=== PATIENT | female | born 1965 | race Caucasian/White ===

== ENCOUNTER 2022-03-16 06:11 | Emergency (ER) | payer OTHER, MEDICAID, SELFPAY ==
[2022-03-16] VITALS (27 sets, daily range): BP systolic 86–119; BP diastolic 50–77; PULSE 72–92; RESP 22; TEMP 36.8; O2SAT 92–100
--- NOTE | 2022-03-16 06:10 | DI.RAD.S_ITS ---
PROCEDURE: XR TIBIA FIBULA LT 2V INDICATIONS: ankle deformity after fall TECHNIQUE: 2 views of the tibia and fibula were acquired. COMPARISON: [facility], CR, XR ANKLE LT MIN 3V, 03/16/2022, 6:18. is again seen FINDINGS: Bones: Slightly displaced oblique fracture through distal fibular shaft is again seen. Displaced medial malleolus fracture is also noted. No fracture or dislocation is seen in proximal to mid tibia or fibula. Soft tissues: No suspicious soft tissue calcifications or masses. IMPRESSION: Bi malleolar fracture. No proximal to mid tibial or fibular fracture. Dictated by: Hill Rose M.D. on 03/16/2022 at 8:19 Approved by: Hill Rose M.D. on 03/16/2022 at 8:24
--- NOTE | 2022-03-16 06:10 | DI.RAD.S_ITS ---
PROCEDURE: XR ANKLE LT MIN 3V INDICATIONS: ankle deformity TECHNIQUE: 3 views of the ankle were acquired. COMPARISON: None. FINDINGS: Bones: Acute comminuted and slightly displaced oblique fracture involving distal fibular shaft is seen with dorsal and lateral displacement at fracture sites. Acute slightly comminuted fracture through medial malleolus is also seen with distal displacement at fracture site. No other fracture or dislocation. Ankle mortise is congruent. Soft tissues: No tibiotalar joint effusion. Achilles tendon appears normal. IMPRESSION: Acute slightly displaced bi malleolar fracture as above. No significant discrepancies. Dictated by: Hill Rose M.D. on 03/16/2022 at 8:18 Approved by: Hill Rose M.D. on 03/16/2022 at 8:19
--- NOTE | 2022-03-16 06:12 | ED.GENADULT ---
HPI - General Adult <Funmi Alcaraz MD - Last Filed: 03/17/22 02:55> General Chief complaint: Extremity Injury, Lower Stated complaint: GLF /LT ankle pain Time Seen by Provider: 03/16/22 06:14 History of Present Illness HPI narrative: 57-year-old woman with no significant medical history and no significant interaction with the medical community for approximately 20 years presents after a fall about 10:00 a.m. last night. She states that she took a cab home and stumbled going up her steep driveway. Significant pain on the left side but she was able to get herself into bed keep her foot propped up and it was not until very early this morning that the pain became significant enough that she called 911 to ask for assistance. She describes no other injuries, no recent fever, cough, chills, abdominal pain, vomiting, chest pain, headaches, palpitations. Related Data Previous Rx's Medication Instructions Recorded morphine 15 mg immediate release 15 mg PO Q4H #14 tabs 03/16/22 tablet ondansetron 4 mg disintegrating 4 mg PO Q6H #14 tabs 03/16/22 tablet Allergies Allergy/AdvReac Type Severity Reaction Status Date / Time codeine Allergy Verified 03/16/22 12:42 Sulfa (Sulfonamide Allergy Verified 03/16/22 12:42 Antibiotics) tetracycline Allergy Verified 03/16/22 12:42 Review of Systems <Funmi Alcaraz MD - Last Filed: 03/17/22 02:55> Review of Systems Narrative: Remainder of complete review of systems is otherwise unremarkable except for that included in the HPI. Patient History <Funmi Alcaraz MD - Last Filed: 03/17/22 02:55> Social History Smoking Status: Never smoker Exam <Funmi Alcaraz MD - Last Filed: 03/17/22 02:55> Initial Vital Signs Initial Vital Signs: Vital Signs Pulse Rate 92 H 03/16/22 06:16 Pulse Oximetry 98 03/16/22 06:16 General: Alert, she ring secondary to anxiety and pain, Respiratory: Able to speak in full sentences, no obvious respiratory distress Skin: No obvious rashes, warm and dry Neurologic: Grossly intact no obvious asymmetries or abnormalities Psych: appropriate insight and affect, cooperative Extremity: Significant deformity left distal lower extremity slightly proximal to the ankle. She is able to wiggle her toes. There is increasing swelling and hematoma developing around the deformity. She does not have proximal fibular pain or knee complaints. <Greg Torres MD - Last Filed: 03/16/22 10:50> Initial Vital Signs Initial Vital Signs: Vital Signs Pulse Rate 92 H 03/16/22 06:16 Pulse Oximetry 98 03/16/22 06:16 Course <Funmi Alcaraz MD - Last Filed: 03/17/22 02:55> Orders Ordered: Discontinued Medications Hydromorphone HCl (Hydromorphone 0.5 Mg Inj) 0.5 mg IV Q15MIN PRN PRN Reason: Pain, Last Admin: 03/16/22 12:41 Dose: 0.5 mg Documented By: Admin: 03/16/22 10:12 Dose: 0.5 mg Documented By: Admin: 03/16/22 08:11 Dose: 0.5 mg Documented By: Admin: 03/16/22 06:34 Dose: 0.5 mg Documented By: EB Ketorolac Tromethamine (Ketorolac 30 Mg/Ml Vial) 15 mg IV NOW ONE Stop: 03/16/22 06:11 Last Admin: 03/16/22 06:19 Dose: 15 mg Documented By: EB Metoclopramide HCl (Metoclopramide 10 Mg/2 Ml Inj) 10 mg IV NOW ONE Stop: 03/16/22 10:17 Last Admin: 03/16/22 10:20 Dose: 10 mg Documented By: FABY Ondansetron HCl (Ondansetron 4 Mg/2 Ml Inj) 4 mg IV NOW ONE Stop: 03/16/22 10:04 Last Admin: 03/16/22 10:10 Dose: 4 mg Documented By: FABY Ondansetron HCl (Ondansetron 4 Mg Odt) 4 mg SL NOW ONE Stop: 03/16/22 14:28 Last Admin: 03/16/22 14:30 Dose: 4 mg Documented By: AT Vital Signs Vital signs: Vital Signs - 8 hr 03/16/22 06:30 03/16/22 06:16 03/16/22 06:30 Temperature 98.3 F Pulse Rate 91 H 92 H 84 Respiratory Rate 22 Blood Pressure 119/77 Pulse Oximetry 96 98 98 Oxygen Delivery Method Room Air 03/16/22 07:01 03/16/22 07:30 Temperature Pulse Rate 75 73 Respiratory Rate Blood Pressure Pulse Oximetry 94 94 Oxygen Delivery Method <Greg Torres MD - Last Filed: 03/16/22 10:50> Course Course Narrative: MRI is ordered at the request of Dr. Smith. This is pending. Splint is placed by nursing staff. Post splinting neurovascular status is intact as assessed by myself. She will be given crutches and pain medication prescription and expected outpatient follow-up. Orders Ordered: Discontinued Medications Hydromorphone HCl (Hydromorphone 0.5 Mg Inj) 0.5 mg IV Q15MIN PRN PRN Reason: Pain, Last Admin: 03/16/22 12:41 Dose: 0.5 mg Documented By: Admin: 03/16/22 10:12 Dose: 0.5 mg Documented By: Admin: 03/16/22 08:11 Dose: 0.5 mg Documented By: Admin: 03/16/22 06:34 Dose: 0.5 mg Documented By: EB Ketorolac Tromethamine (Ketorolac 30 Mg/Ml Vial) 15 mg IV NOW ONE Stop: 03/16/22 06:11 Last Admin: 03/16/22 06:19 Dose: 15 mg Documented By: EB Metoclopramide HCl (Metoclopramide 10 Mg/2 Ml Inj) 10 mg IV NOW ONE Stop: 03/16/22 10:17 Last Admin: 03/16/22 10:20 Dose: 10 mg Documented By: FABY Ondansetron HCl (Ondansetron 4 Mg/2 Ml Inj) 4 mg IV NOW ONE Stop: 03/16/22 10:04 Last Admin: 03/16/22 10:10 Dose: 4 mg Documented By: FABY Ondansetron HCl (Ondansetron 4 Mg Odt) 4 mg SL NOW ONE Stop: 03/16/22 14:28 Last Admin: 03/16/22 14:30 Dose: 4 mg Documented By: AT Consultations Consultation #1: Current time 8:24 a.m.. Spoke with Sudheer Smith from Orthopedic surgery who said that he would make arrangements for her to be seen in the clinic in the coming days. He recommended splinting and outpatient follow-up. Given the slightly unusual cortical appearance on x-ray will proceed with MR imaging with and without contrast to more definitively exclude pathologic fracture. Vital Signs Vital signs: Vital Signs - 8 hr 03/16/22 06:30 03/16/22 06:16 03/16/22 06:30 Temperature 98.3 F Pulse Rate 91 H 92 H 84 Respiratory Rate 22 Blood Pressure 119/77 Pulse Oximetry 96 98 98 Oxygen Delivery Method Room Air 03/16/22 07:01 03/16/22 07:30 Temperature Pulse Rate 75 73 Respiratory Rate Blood Pressure Pulse Oximetry 94 94 Oxygen Delivery Method Discharge Plan Departure Patient Disposition: Home Clinical Impression: Bimalleolar ankle fracture Qualifiers: Encounter type: initial encounter Fracture type: closed Laterality: left Qualified Code(s): S82.842A - Displaced bimalleolar fracture of left lower leg, initial encounter for closed fracture Instructions: DI for Fracture Activity Restrictions/Additional Instructions: I am sorry that you broke her leg. Keep the splint on, elevate the leg as much as possible. Elevation means higher than your heart. Ice packs can help with pain as well but do not leave the ice packs on for more than 30 minutes at a time allowing the leg to warm up in between icing events. Pain management will be helped by Tylenol 1000 mg every 6 hours. In addition to this you can take morphine tablets 1 every 4 hours if needed. I will also prescribe ondansetron for nausea as needed. Do not bear weight on the ankle. Use the crutches to get around. The clinic will call you in the next day or 2 to schedule an outpatient follow-up visit in the coming days. If the pain is severe and not manageable with the medications provided, please return to the emergency department for further evaluation Prescriptions: New morphine 15 mg tablet 15 mg PO Q4H Qty: 14 0RF ondansetron 4 mg tablet,disintegrating 4 mg PO Q6H Qty: 14 0RF Visit Report Forms: Patient Portal/API
[2022-03-16] MEDS: KETOROLAC 30 MG/ML VIAL 15 MG IV (06:19)
[2022-03-16] MEDS: HYDROMORPHONE 0.5 MG INJ IV ×4 (06:34→12:41)
--- NOTE | 2022-03-16 08:20 | DI.MRI.S_ITS ---
PROCEDURE: MR ANKLE LT WO/W CON INDICATIONS: pathologic fracture TECHNIQUE: Noncontrast sagittal T1 spin echo and T2 fast spin echo with fat saturation, axial proton density fast spin echo and T2 fast spin echo with fat saturation, axial T1 spin echo with fat saturation, coronal T1 spin echo and T2 fast spin echo with fat saturation through the ankle/hindfoot. Post-contrast axial, coronal, and sagittal T1 spin echo with fat saturation through the ankle/hindfoot. COMPARISON: [facility], CR, XR TIBIA FIBULA LT 2V, 03/16/2022, 6:18. FINDINGS: Image quality: Excellent. Bones and joints: There is a minimally displaced oblique fracture of the distal fibular shaft as seen on radiographs from earlier the same day. Relatively mild surrounding osseous edema is seen. No underlying osseous lesion or abnormal masslike enhancement is seen to suggest pathologic fracture. Mildly displaced transverse fracture of the medial malleolus is seen with minimal adjacent osseous edema. The distal fracture fragment is displaced approximately 3 mm medially. There is associated mild medial subluxation of the talus relative to the distal tibia. A small minimally displaced 8 x 11 x 2 mm comminuted osseous fragment is seen along the posterior fracture line. No posterior malleolus fracture is seen. No osteochondral lesion is seen in the talar dome. Subcutaneous soft tissue edema is seen surrounding the ankle. Medial structures: Mildly increased signal is seen in the region of the deep fibers of the deltoid ligament, consistent with a low-grade sprain. No definite ligament tearing is seen. However, positioning of the ankle in plantar flexion mildly compromises evaluation. The visualized components of the spring ligament appear to be intact. The posterior tibialis, flexor digitorum longus, and flexor hallucis longus tendons are intact. The posterior tibial neurovascular bundle appears normal within the tarsal tunnel, without extrinsic mass effect. Lateral structures: Thickening of the anterior talofibular ligament without surrounding edema is consistent with a remote prior sprain. The calcaneofibular ligament and the posterior talofibular ligament appear to be intact. There is probable complete tearing of the anterior and posterior tibiofibular ligaments as well as edema and irregularity in the region of the interosseous ligament. The peroneus longus and brevis tendons demonstrate normal location and morphology. There is very mild partial effacement of the fat in the sinus tarsi. Anterior structures: The tibialis anterior, extensor hallucis longus, and extensor digitorum longus tendons appear intact. The dorsal talonavicular ligament appears intact. Posterior and plantar structures: Achilles tendon is intact. Medial and lateral bands of the plantar fascia are of normal thickness. No abductor digiti quinti muscle atrophy to suggest Guthrie neuropathy. IMPRESSION: 1. Mildly displaced bimalleolar fractures with associated mild lateral tibiotalar subluxation. No osseous mass or abnormal masslike enhancement is seen to suggest a pathologic fracture. 2. Complete tearing of the anterior and posterior tibiofibular ligaments and mild irregularity of the interosseous ligament, consistent with syndesmotic injury. 3. Low-grade sprain of the anterior talofibular ligament is of uncertain age and may be chronic. 4. Grade 1 sprain of the deltoid ligament. Dictated by: Asif Fragoso M.D. on 03/16/2022 at 14:18 Approved by: Asif Fragoso M.D. on 03/16/2022 at 14:32
[2022-03-16] MEDS: ONDANSETRON 4 MG/2 ML INJ (08:24)
[2022-03-16] MEDS: ONDANSETRON 4 MG/2 ML INJ IV (10:10)
[2022-03-16] MEDS: METOCLOPRAMIDE 10 MG/2 ML INJ IV (10:20)
[2022-03-16] MEDS: ONDANSETRON 4 MG ODT SL (14:30)
== END 2022-03-16 16:37 | disposition home or self-care (01) ==
PROVIDERS: Emergency Provider Family Medicine Addiction Medicine
DX: S82.842A Displaced bimalleolar fracture of left lower leg, initial encounter for closed fracture (principal); W19.XXXA Unspecified fall, initial encounter
CPT/HCPCS: 73590; 73610; 73723; 96374; 96375; 99284; 99285; J1170; J1885; J2405; J2765

== ENCOUNTER 2022-03-19 09:55 | Day surgery (SDC) | payer OTHER, MEDICAID, SELFPAY ==
[2022-03-19] VITALS (8 sets, daily range): BP systolic 110–135; BP diastolic 70–84; PULSE 73–89; RESP 10–18; TEMP 36.6–37.4; O2SAT 92–99; BMI 29.9
--- NOTE | 2022-03-19 | DI.RAD.S_ITS ---
PROCEDURE: XR ANKLE LT 2V INDICATIONS: LT ANKLE SURGERY TECHNIQUE: 3 views of the ankle were acquired. COMPARISON: [facility], CR, XR ANKLE LT MIN 3V, 03/16/2022, 6:18. FINDINGS: 3 limited intraoperative fluoroscopic images of the left ankle were acquired in support of open reduction and internal fixation of bimalleolar fractures. Postsurgical alignment is anatomic. No gross hardware complication. Distal syndesmotic soft tissue anchor is also noted. IMPRESSION: Intraoperative fluoroscopic support for open reduction and internal fixation of bimalleolar fractures. Postsurgical alignment appears anatomic. Please see operative note for further details. Dictated by: Jamari Suero M.D. on 03/19/2022 at 16:05 Approved by: Jamari Suero M.D. on 03/19/2022 at 16:07
--- NOTE | 2022-03-19 06:58 | P.HP_ITS ---
History of Present Illness History of Present Illness Date Patient Seen: 03/19/22 Time Patient Seen: 10:30 Date of Onset of Symptoms: 03/16/22 Chief complaint: ankle fracture Narrative: The patient is a 57 yo F that fell at home on the uneven pavement in her driveway and sustained an ankle fracture. She called EMS and present to on 03/16 and was found to have a anthony ankle fracture with syndesmotic disruption. she was splinted and refered to orthopedic surgery. she has been indicated fro ORIF to improve alignment and healing and reduce the risk of malunion and post- traumatic arthritis. she takes no medictions. allergies to codeine (nausea), sulfa (anaphylaxis), tetracycline. No personal or family history of blood clots, No chest pain. no nausea, no vomiting no fever or chills. She has some scrapes on her elbow but has full range of motion, no other injuries Patient History Family & Social History Tobacco & Substance use: Smoking Status Never smoker alcohol intake current alcohol intake frequency 0-2 drinks per day Substance Use Type does not use Meds Home Medications and Allergies Home Medications Medication Instructions Recorded Confirmed Type morphine 15 mg immediate release 15 mg PO Q4H #14 tabs 03/16/22 03/17/22 Rx tablet ondansetron 4 mg disintegrating 4 mg PO Q6H #14 tabs 03/16/22 03/17/22 Rx tablet acetaminophen 325 mg capsule 1,000 mg PO Q4-6H pain 03/19/22 03/19/22 History (Tylenol) Allergies Allergy/AdvReac Type Severity Reaction Status Date / Time Sulfa (Sulfonamide Allergy Severe Anaphylaxis Verified 03/19/22 10:15 Antibiotics) tetracycline Allergy Unknown Verified 03/19/22 10:15 codeine AdvReac Intermediate vomit Verified 03/19/22 10:15 Review of Systems Review of Systems Narrative: No fevers chills nausea or vomiting. Has a mild rash on her back she thinks she is allergic to feather pillow. No chest pain no shortness of breath all other 10 point review of systems negative except for that mentioned in the HPI ROS: Yes All systems reviewed with the patient and are negative except as otherwise documented Exam Narrative Exam Narrative: Alert oriented woman in no acute distress. HEENT normocephalic atraumatic respiratory exam nonlabored on room air and lungs clear to auscultation. Cardiac regular rate and rhythm. There is a few hives on her back. No appearance of infection. Some superficial scraping on her left elbow full range of motion flexion extension is noted. Left lower extremity is in a splint. Toes with brisk capillary refill. Some light bruising the proximal tib-fib. Nontender around the knee. Thigh and calf were soft. Normal range of motion nontender right lower extremity Objective Imaging X-ray left ankle: My impression: Bimalleolar ankle fracture at the level of the syndesmosis with lateral translation talus, unstable bimalleolar ankle fracture Assessment & Plan Assessment and plan (1) Bimalleolar ankle fracture: Qualifiers: Encounter type: initial encounter Fracture type: closed Laterality: left Qualified Code(s): S82.842A - Displaced bimalleolar fracture of left lower leg, initial encounter for closed fracture Status: Acute Assessment & Plan narrative: Left bimalleolar ankle fracture with syndesmotic disruption. Indicated for ORIF bimalleolar ankle fracture and ORIF syndesmosis. Discussed the option of the procedures restore alignment reduce the risk of posttraumatic arthritis persistent pain. Patient understands and agrees with the plan. The risks and benefits of the procedure have been discussed with the patient given the opportunity to ask questions. The risks of surgery include but are not limited to infection, malunion, nonunion, persistence of pain, damage to nerves and blood vessels, posttraumatic arthritis, DVT, PE, cardiopulmonary complications and . The patient expressed a thorough understanding of the risks and benefits of surgery and has elected to proceed. Consent was signed. The patient has not required narcotics and declines narcotics prescription, will do peripheral nerve block and Toradol. Can also take Tylenol. No personal or family history of blood clots or coagulopathies. Will use aspirin as DVT prophylaxis. Plan nonweightbearing 6 weeks after surgery. Will follow up in 2 weeks for removal of the splint placement of a boot and start early range of motion COVID-19 COVID-19 status: Result pending Time Spent With Patient Time with patient: less than 30 minutes Critical Care time: I spent a total of [] minutes of critical care time on this patient's care today; this time is exclusive of procedural time. Quality VTE Deep Vein Thrombosis/Pulmonary Embolism Present on Admission: No
[2022-03-19] MEDS: LACTATED RINGERS 1,000 ML 42 ML IV ×2 (10:39→13:16)
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
[2022-03-19 11:15] LABS: COVID19 -Nasal RAPID Negative (Negative)
[2022-03-19] MEDS: CEFAZOLIN 2 GM/100 ML PREMIX 100 ML IV (11:50)
--- NOTE | 2022-03-19 12:16 | SUR.OPER ---
Supine on padded OR bed, head on pillow, arms secured on padded arm boards at <90 degrees abduction, legs uncrossed, safety belt at waist, tape over blanket over lower right leg, left leg draped free with blankets under lower leg and left hip.
[2022-03-19] MEDS: BUPIVACAINE 0.5% W/ EPI (PF) 30 ML VIAL INJ (12:25)
--- NOTE | 2022-03-19 13:28 | SUR.PREOP ---
Block start time [1120] . Monitoring initiated and maintained throughout procedure. Oxygen and medications given per anesthesiologist. Patient remained stable throughout procedure, no adverse reactions noted. Block end time [1135 ].
== END 2022-03-19 15:20 | disposition home or self-care (01) ==
PROVIDERS: Referring Provider Orthopaedic Surgery Foot and Ankle Surgery; Visit Provider Orthopaedic Surgery Foot and Ankle Surgery
PROC: (CPT 27814; principal; 2022-03-19 11:15)
DX: S82.842A Displaced bimalleolar fracture of left lower leg, initial encounter for closed fracture (principal); S93.432A Sprain of tibiofibular ligament of left ankle, initial encounter; Z20.822 Contact with and (suspected) exposure to COVID-19
CPT/HCPCS: 27814; 27829; 64450; 73600; 76000; 87635; C1713; J0690; J1100; J1170; J2250; J2405; J2704; J3010

== ENCOUNTER 2023-10-03 21:25 | Emergency (ER) | payer OTHER, SELFPAY ==
[2023-10-03] VITALS (7 sets, daily range): BP systolic 113–147; BP diastolic 73–93; PULSE 77–87; RESP 15–38; TEMP 36; O2SAT 96–98; BMI 17.6
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
[2023-10-03 21:41] LABS: Add Manual Diff / Slide Review NO; Basophils Absolute Auto 100 /uL (0-100); Basophils Percent Auto 0.6 % (0-2); Eosinophils Absolute Auto 300 /uL (0-450); Eosinophils Percent Auto 3.1 % (2-4); Hematocrit 44.9 % (36-46); Hemoglobin 15.1 g/dL (12.0-16.0); Lymphocytes Absolute Auto 4100 /uL (1100-4500); Lymphocytes Percent Auto 37.2 % (25-40); Mean Corpuscular HGB Conc 33.7 % (30-36); Mean Corpuscular Hemoglobin 32.5 PG (26-34); Mean Corpuscular Volume 96.6 fL (80-100); Monocytes Absolute Auto 800 /uL (0-900); Monocytes Percent Auto 7.1 % (3-14); Neutrophils Absolute Auto 5700 /uL (1500-7000); Platelet Count 360 X10^3/uL (150-400); Red Blood Cell Count 4.65 X10^6/uL (4.0-5.2); Red Cell Distribution Width 12.7 % (11.6-14.8)
[2023-10-03 21:50] LABS: Alanine Aminotransferase 39 IU/L (<35); Albumin 4.6 g/dL (3.5-5.0); Albumin Globulin Ratio 1.3 (1.0-2.8); Alkaline Phosphatase 84 U/L (38-126); Aspartate Aminotransferase 36 IU/L (14-36); BUN Creatinine Ratio 28.6 (6-22); Bilirubin Total 0.4 mg/dL (0.2-1.3); Blood Urea Nitrogen 18 mg/dL (7-17); Calcium 9.6 mg/dL (8.4-10.2); Carbon Dioxide 27 mmol/L (22-32); Chloride 109 mmol/L (98-107); Estimated Glomerular Filt Rate > 60 mL/min (>60); Ethanol (ETOH) 286 mg/dL; Globulin 3.5 g/dL (1.7-4.1); Glucose 137 mg/dL (80-110); HEMOLYSIS < 15 (0-50); Lipase 213 U/L (23-300); Potassium 4.5 mmol/L (3.4-5.1); Sodium 145 mmol/L (137-145); Total Protein 8.1 g/dL (6.3-8.2)
[2023-10-03] MEDS: SODIUM CHLORIDE 0.9% 1,000 ML 125 ML IV (21:54)
--- NOTE | 2023-10-03 21:56 | PC.NURSE ---
Pt laying in bed, pt is confused ,asking the same questions. Repeating herself often. Unable to consistently follow commands at this time.
--- NOTE | 2023-10-03 22:06 | PC.NURSE ---
pt put on bear hugger to help warm pt. Pt was instructed to stop moving neck until ct scans result. Pt in c-collar. Pt is still moving neck and not following commands.
--- NOTE | 2023-10-03 22:15 | PC.NURSE ---
pt does not want us to call her contact in her demographics, priscila gould requesting for us to Yessi, her daughter, but does not know her phone number.
--- NOTE | 2023-10-03 22:56 | PC.NURSE ---
C-collar removed with MD Kunz verbal order. Pt denies any neck pain at this time.
--- NOTE | 2023-10-03 23:00 | PC.NURSE ---
Put cycle touring guide socks on pt. Pt denied wanting any mesh underwear d/t i dont wear underwear. Pt ambulated to bathroom well without assistance. Did need reminding to complete tasks like washing hands. Placed back into bed.
--- NOTE | 2023-10-03 23:06 | PC.NURSE ---
Daughter, Mayra Beckwith, called at [phone]. Updated on pt status. States she gets drunk sounding phone calls often from pt. States the pt probably does not actually want her there d/t history. Pt is now sitting up in bed telling staff she doesnt want to be here anymore but does not have a plan. Pt is AAOx4, moving all extremities, denies any pain at this time. Pt wiping skin off to get mud off. Denies any needs at this time.
--- NOTE | 2023-10-03 23:31 | PC.NURSE ---
This RN explained to the pt that we needed to wait for her to become more sober before she was discharged. Pt tried to give this RN multiple options for her to get home. Pt was told we would wait and see. Pt was asked to take a nap and relax in bed. Pt says she wants to set an alarm, seeing as the pt does not have her phone, no alarm could be set but pt was reassured that this RN and other staff would be back in room shortly to check on her.
--- NOTE | 2023-10-03 23:52 | PC.NURSE ---
This RN was outside of pt room and saw her ripping off her arm band with her name on it as well as attempting to take out her IV. I explained to the pt that she needed to keep her IV in. She states im not going to do that, Im just going to leave. This RN explained that she could not leave at this time d/t being intoxicated as well as her suicidal statements. Pt says thats ridiculous, i'm leaving. This RN said no, we would be moving her to a safety room. Pt was frustrated and attempted to remove her IV again. This RN put her hand on pts IV site and said to stop. Pt attempted to remove RN's hand. IV was saved and pt removed her hand. Pt was moved to the safety room. This RN had assistance from other staff at that time. As RN was hooking the IV fluids to the bed the pt snatched out her IV. This RN removed the fluids. At this time there is a sitter outside of the pts room. Pt is in a gown. Pt paperwork from police is in her chart at nurses station as well a set of earings and a necklace in a bag.
--- NOTE | 2023-10-04 01:12 | PC.NURSE ---
Pt is awake and oriented, clear speech and is much more cooperative with staff. Pt understands how she got to the hospital though does not specifically remember the events that led to that. Pt denies being suicidal but states that she is disappointed in herself. States she does not have any objects to harm herself at home, no weapons or guns or drugs. Denies wanting to hurt herself. MD Kunz at bedside now.
[2023-10-04 01:22] VITALS: BP 132/78; PULSE 90; RESP 19; TEMP 37.1; O2SAT 99
[2023-10-04] MEDS: ACETAMINOPHEN 325 MG TABLET 650 MG PO (01:24)
== END 2023-10-04 01:47 | disposition home or self-care (01) ==
PROVIDERS: Emergency Provider Emergency Medicine
DX: S40.812A Abrasion of left upper arm, initial encounter (principal); S80.212A Abrasion, left knee, initial encounter; S40.212A Abrasion of left shoulder, initial encounter; V49.3XXA Car occupant (driver) (passenger) injured in unspecified nontraffic accident, initial encounter; F10.129 Alcohol abuse with intoxication, unspecified; Y90.8 Blood alcohol level of 240 mg/100 ml or more
CPT/HCPCS: 36415; 70450; 71260; 72125; 74177; 80053; 80320; 83690; 85025; 93005; 99285; Q9967